=== PATIENT | male | born 1965 | race Caucasian/White ===

== ENCOUNTER → 2017-07-31 | Outpatient (CLI) | payer MEDICARE, OTHER ==
--- NOTE | 2017-07-31 11:06 | RAD ---
DATE: July 31, 2017 EXAM: DIGITAL DIAGNOSTIC BILATERAL, BREAST BILATERAL HISTORY: Male patient with a palpable right breast lump for 2 months. COMPARISON: None. First time study. This study was interpreted with the benefit of Computerized Aided Detection (CAD). Bilateral 2-D digital diagnostic mammography was performed in the CC and MLO projections. DIAGNOSTIC MAMMOGRAPHIC FINDINGS: The breast parenchyma is replaced with adipose tissue. Bilateral retroareolar breast density more prominent on the right side is seen consistent with bilateral gynecomastia more prominent on the right side. No spiculation or architectural distortion or clustering of pleomorphic microcalcifications are seen otherwise. RIGHT BREAST SONOGRAPHY: High-resolution sonography of all 4 quadrants and the retroareolar region of the right breast was performed. In the retroareolar region of the right breast, there is gynecomastia present which is asymmetrically more prominent in comparison to the left side. No irregular mass or area of irregular acoustic shadowing is seen. LEFT BREAST SONOGRAPHY: High-resolution sonography of all 4 quadrants and the retroareolar region of the left breast was performed. In the retroareolar region, mild gynecomastia is seen. IMPRESSION: Bilateral gynecomastia more prominent on the right side. Recommend 6 month follow-up bilateral mammography and breast sonography to ensure stability. Recommend continued close clinical follow-up with regard to the palpable lump of the right breast. If the lump continues to grow in size, then earlier workup may commence at that time. BI-RADS CATEGORY: 3 PROBABLE BENIGN-SHORT TERM F/U RECOMMENDED FOLLOW-UP: 6M 6 MONTH FOLLOW-UP PQRS compliance statement: Patient information was entered into a reminder system with a target due date January 28, 2018 for the next imaging study. Mammography is a sensitive method for finding small breast cancers, but it does not detect them all and is not a substitute for careful clinical examination. A negative mammogram does not negate a clinically suspicious finding and should not result in delay in biopsying a clinically suspicious abnormality. "Our facility is accredited by the [employer] Mammography [employer]." The patient's breast density may affect the ability of mammography to detect breast cancer. There are 4 categories of breast density, A, B, C and D. Breast density A means that most of the breast tissue is replaced with adipose tissue and therefore is not dense. Breast density B means that the breast tissue is mildly dense and scattered. Breast density C means that the breast tissue is heterogeneously dense. Breast density D means that the breast tissue is very dense. Breast densities especially C and D may decrease the sensitivity of mammography to detect breast cancer. Therefore, the patient may benefit from 3-D breast mammography (3D breast tomography) as a part of their screening mammogram. Insurance may or may not pay for this additional imaging. The patient's breast density based on today's mammogram is category A.
== END | disposition home or self-care (01) ==
LOC: MAMMO 09:16
PROVIDERS: ATTEND Physician Assistant Medical
DX: N63.10 Unspecified lump in the right breast, unspecified quadrant (principal); N62 Hypertrophy of breast
CPT/HCPCS: 76641; 77066